=== PATIENT | female | born 1970 | race Caucasian/White ===

== ENCOUNTER → 2016-04-23 | Outpatient (CLI) | payer BC | LOC: BHSO 14:00 | DX: F33.2 Major depressive disorder, recurrent severe without psychotic features (principal) ==

== ENCOUNTER → 2016-05-31 | Outpatient (CLI) | payer BC | LOC: BHSO 10:23 | DX: F33.41 Major depressive disorder, recurrent, in partial remission (principal) ==

== ENCOUNTER → 2016-06-06 | Outpatient (CLI) | payer BC | LOC: BHSO 10:00 | DX: F33.2 Major depressive disorder, recurrent severe without psychotic features (principal) ==

== ENCOUNTER → 2016-06-29 | Outpatient (CLI) | payer BC | LOC: BHSO 11:05 | DX: F33.41 Major depressive disorder, recurrent, in partial remission (principal) ==

== ENCOUNTER → 2016-07-13 | Outpatient (CLI) | payer BC | LOC: BHSO 09:50 | DX: F33.1 Major depressive disorder, recurrent, moderate (principal) ==

== ENCOUNTER → 2016-08-10 | Outpatient (CLI) | payer BC | LOC: BHSO 10:00 | DX: F33.1 Major depressive disorder, recurrent, moderate (principal) ==

== ENCOUNTER → 2016-10-05 | Outpatient (CLI) | payer BC | LOC: BHSO 14:49 | DX: F33.1 Major depressive disorder, recurrent, moderate (principal) ==

== ENCOUNTER → 2016-11-16 | Outpatient (CLI) | payer BC | LOC: BHSO 15:01 | DX: F33.2 Major depressive disorder, recurrent severe without psychotic features (principal) ==

== ENCOUNTER → 2016-12-14 | Outpatient (CLI) | payer BC | LOC: BHSO 14:54 | DX: F33.1 Major depressive disorder, recurrent, moderate (principal) ==

== ENCOUNTER → 2017-01-11 | Outpatient (CLI) | payer BC | LOC: BHSO 15:00 | DX: F33.2 Major depressive disorder, recurrent severe without psychotic features (principal) ==

== ENCOUNTER → 2017-02-08 | Outpatient (CLI) | payer BC | LOC: BHSO 14:54 | DX: F33.1 Major depressive disorder, recurrent, moderate (principal) ==

== ENCOUNTER → 2017-05-14 | Outpatient (CLI) | payer BC | LOC: BHSO 15:14 | DX: F33.42 Major depressive disorder, recurrent, in full remission (principal) | CPT/HCPCS: G0463 ==

== ENCOUNTER → 2017-12-18 | Outpatient (CLI) | payer BC | LOC: BHSO 16:04 | DX: F33.0 Major depressive disorder, recurrent, mild (principal) ==

== ENCOUNTER → 2018-01-06 | Outpatient (CLI) | payer BC | LOC: BHSO 14:54 | DX: F33.2 Major depressive disorder, recurrent severe without psychotic features (principal) ==

== ENCOUNTER → 2018-01-23 | Outpatient (CLI) | payer BC | LOC: BHSO 15:11 | DX: F33.2 Major depressive disorder, recurrent severe without psychotic features (principal) ==

== ENCOUNTER → 2018-02-13 | Outpatient (CLI) | payer BC | LOC: BHSO 15:01 | DX: F33.1 Major depressive disorder, recurrent, moderate (principal) ==

== ENCOUNTER → 2018-03-07 | Outpatient (CLI) | payer BC | LOC: BHSO 15:00 | DX: F33.1 Major depressive disorder, recurrent, moderate (principal) ==

== ENCOUNTER → 2018-03-24 | Outpatient (CLI) | payer BC | LOC: BHSO 13:03 | DX: F33.1 Major depressive disorder, recurrent, moderate (principal) ==

== ENCOUNTER → 2018-04-11 | Outpatient (CLI) | payer BC | LOC: BHSO 09:43 | DX: F33.42 Major depressive disorder, recurrent, in full remission (principal) | CPT/HCPCS: G0463 ==

== ENCOUNTER → 2018-05-06 | Outpatient (CLI) | payer BC | LOC: BHSO 15:02 | DX: F33.2 Major depressive disorder, recurrent severe without psychotic features (principal) ==

== ENCOUNTER → 2018-05-22 | Outpatient (CLI) | payer BC | LOC: BHSO 15:06 | DX: F33.1 Major depressive disorder, recurrent, moderate (principal) ==

== ENCOUNTER → 2018-06-18 | Outpatient (CLI) | payer BC | LOC: BHSO 15:04 | DX: F33.1 Major depressive disorder, recurrent, moderate (principal) ==

== ENCOUNTER → 2018-07-02 | Outpatient (CLI) | payer BC | LOC: BHSO 15:02 | DX: F33.1 Major depressive disorder, recurrent, moderate (principal) ==

== ENCOUNTER → 2019-01-27 | Outpatient (CLI) | payer BC | LOC: BHSO 14:52 | DX: F33.42 Major depressive disorder, recurrent, in full remission (principal) | CPT/HCPCS: G0463 ==

== ENCOUNTER → 2019-05-05 | Outpatient (CLI) | payer BC | LOC: BHSO 13:09 | DX: F33.1 Major depressive disorder, recurrent, moderate (principal) ==

== ENCOUNTER → 2019-05-26 | Outpatient (CLI) | payer BC | LOC: BHSO 16:05 | DX: F33.0 Major depressive disorder, recurrent, mild (principal) ==